=== PATIENT | female | born 1960 | race Two or more races ===

== ENCOUNTER 2016-09-11 15:02 | Emergency (ER) | payer MEDICAID ==
[~2016-09-11] VITALS: Ht 160 cm; Wt 104.3 kg
[2016-09-11] MEDS ORDERED: IBUPROFEN 400 MG TABLET ONE (15:10)
[2016-09-11] MEDS ORDERED: ONDANSETRON 4 MG TAB.RAPDIS ONE (15:11)
[2016-09-11 15:25] VITALS: BP 135/74
[2016-09-11] MEDS ORDERED: IBUPROFEN 400 MG TABLET PO ONE (15:30)
[2016-09-11] MEDS ORDERED: ONDANSETRON 4 MG TAB.RAPDIS SL ONE (15:30)
== END 2016-09-11 17:20 | disposition home or self-care (01) ==
LOC: ER 15:04
DX: S86.911A Strain of unspecified muscle(s) and tendon(s) at lower leg level, right leg, initial encounter (principal); V49.40XA Driver injured in collision with unspecified motor vehicles in traffic accident, initial encounter; Y93.89 Activity, other specified; Y92.413 State road as the place of occurrence of the external cause; Y99.8 Other external cause status
CPT/HCPCS: 70450; 73564; 99284; A4606; Q0162; Z7610